=== PATIENT | male | born 2000 | race Caucasian/White ===

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

== ENCOUNTER 2019-04-30 02:12 | Emergency (ER) | payer BC ==
[2019-04-30 02:23] VITALS: RESP 18
--- NOTE | 2019-04-30 03:23 | XR ---
EXAM: XR Chest, 2 Views CLINICAL HISTORY: Pain TECHNIQUE: Frontal and lateral views of the chest. COMPARISON: No relevant prior studies available. FINDINGS: Lungs: Unremarkable. No consolidation. Pleural space: Unremarkable. No pneumothorax. Heart: Unremarkable. No cardiomegaly. Mediastinum: Unremarkable. Bones/joints: Unremarkable. IMPRESSION: Normal chest x-rays.
[2019-04-30] MEDS ORDERED: KETOROLAC 30 MG/ML 1 ML VIAL IVP STA (03:37)
--- NOTE | 2019-04-30 03:46 | ED ---
Chest Pain HPI - General Chief Complaint: Chest Pain Stated Complaint: Chest Pain Time Seen by Provider: 04/30/19 02:47 Source: patient, RN notes reviewed, old records reviewed, Caregiver Mode of arrival: ambulatory Limitations: no limitations - History of Present Illness Initial Comments: Is a 18-year-old male presents emergency department today with left-sided pleuritic chest pain. Symptoms started this afternoon around 1:30 PM. Patient states it seems worse with taking a deep breath. Denies any significant coughing. Denies any family history of blood disorders or history of blood clots or PE. Patient states that he has had no fevers or chills. Patient states that the pain seems to be somewhat deeper than just palpation over the ribs. He denies any significant past medical history. - Related Data Home Medications Medication Instructions Recorded Confirmed Dextroamphetamine/Amphetamine 10 mg PO BID 07/29/18 07/29/18 [Adderall] traZODone HCL 50 mg PO HS PRN 07/29/18 07/29/18 Previous Rx's Medication Instructions Recorded Ibuprofen [Motrin] 800 mg PO Q8H PRN 7 Days #21 tab 07/29/18 Albuterol Inhaler [Ventolin Hfa 1 - 2 puff INHALATION RT-Q6H PRN 04/30/19 Inhaler] #1 inhaler Ketorolac [Toradol] 10 mg PO Q6HR #10 tab 04/30/19 methylPREDNISolone Dose Pack 4 mg PO DIRECTED #21 package 04/30/19 [Medrol Dose Pack] Allergies Allergy/AdvReac Type Severity Reaction Status Date / Time No Known Allergies Allergy Verified 04/30/19 02:24 Review of Systems ROS Statement: Those systems with pertinent positive or pertinent negative responses have been documented in the HPI. ROS Other: All systems not noted in ROS Statement are negative. Past Medical History Past Medical History: No Reported History History of Any Multi-Drug Resistant Organisms: None Reported Past Surgical History: No Surgical Hx Reported Additional Past Surgical History / Comment(s): testicular surgery as a infant, Past Psychological History: No Psychological Hx Reported Smoking Status: Current some day smoker Past Alcohol Use History: None Reported Past Drug Use History: None Reported General Exam - General Exam Comments Initial Comments: His is a 18-year-old male. Alert and oriented. No distress. Limitations: no limitations General appearance: alert, in no apparent distress Head exam: Present: atraumatic, normocephalic, normal inspection Eye exam: Present: normal appearance, PERRL, EOMI. Absent: scleral icterus, conjunctival injection, periorbital swelling ENT exam: Present: normal exam, mucous membranes moist Neck exam: Present: normal inspection. Absent: tenderness, meningismus, lymphadenopathy Respiratory exam: Present: normal lung sounds bilaterally, other (Tender to palpation over the left ribs T9 10.). Absent: respiratory distress, wheezes, rales, rhonchi, stridor Cardiovascular Exam: Present: regular rate, normal rhythm, normal heart sounds. Absent: systolic murmur, diastolic murmur, rubs, gallop, clicks GI/Abdominal exam: Present: soft, normal bowel sounds. Absent: distended, tenderness, guarding, rebound, rigid Extremities exam: Present: normal inspection, full ROM, normal capillary refill. Absent: tenderness, pedal edema, joint swelling, calf tenderness Back exam: Present: normal inspection Neurological exam: Present: alert, oriented X3, CN II-XII intact Course Vital Signs 04/30/19 02:21 Temperature 99.2 F Pulse Rate 93 Respiratory 18 Rate Blood Pressure 133/75 O2 Sat by Pulse 98 Oximetry Chest Pain MDM - MDM 18-year-old members as returned today of pleuritic right chest pain. Symptoms started 1:30 PM yesterday. Chest x-rays reviewed to be normal. Blood work was reviewed and unremarkable. EKG shows no acute changes. Patient's chest pain since injury. Reproducible with palpation over the left-sided ribs. I discussed the normal dimer test as well as other labs no further testing needed at this time. Discussed he can follow up with his PCP. We'll discharge the Patient with a prescription for Toradol and Solu-Medrol and albuterol. Discussed that he needs to discontinue the pain. All questions were answered. Discussed appropriate follow-up with PCP. EKG performed at 231 shows normal sinus rhythm and normal EKG. Ventricular rate 73 bpm. Was 124 segs. Dressed duration 90 ms. QT QTc is 366/403 ms. Disposition Clinical Impression: Acute costochondritis, Pleurisy Disposition: HOME SELF-CARE Condition: Good Instructions (If sedation given, give patient instructions): Costochondritis (ED) Additional Instructions: Patient has a take medications as prescribed. Follow-up with your primary care physician. Return to the emergency department if any alarming signs or symptoms occur. Prescriptions: methylPREDNISolone Dose Pack [Medrol Dose Pack] 4 mg PO DIRECTED #21 package Ketorolac [Toradol] 10 mg PO Q6HR #10 tab Albuterol Inhaler [Ventolin Hfa Inhaler] 1 - 2 puff INHALATION RT-Q6H PRN #1 inhaler PRN Reason: Shortness Of Breath Is patient prescribed a controlled substance at d/c from ED?: No Referrals: Rhys Burkett DO [Primary Care Provider] - 1-2 days Time of Disposition: 05:34
[2019-04-30 04:22] LABS: Basophils # (A) 0.1 k/uL (0-0.2); Basophils % (A) 1 %; Eosinophils # (A) 0.1 k/uL (0-0.7); Eosinophils % (A) 2 %; HCT 44.2 % (39.0-53.0); HGB 14.6 gm/dL (13.0-17.5); Lymphocytes # (A) 2.8 k/uL (1.0-4.8); Lymphocytes % (A) 37 %; MCHC 33.1 g/dL (31.0-37.0); MCV 81.6 fL (80.0-100.0); Mean Platelet Volume 7.2; Monocytes # (A) 0.5 k/uL (0-1.0); Monocytes % (A) 7 %; Neutrophils # (A) 3.9 k/uL (1.3-7.7); Neutrophils % (A) 51 %; Platelet Count 183 k/uL (150-450); RBC 5.42 m/uL (4.30-5.90); RDW 12.4 % (11.5-15.5); WBC 7.6 k/uL (4.0-11.0)
[2019-04-30 04:39] LABS: ALT 20 U/L (21-72); AST 23 U/L (17-59); African American GFR (CKD) >90 (>60 ml/min/1.73 sqM); Albumin 4.7 g/dL (3.5-5.0); Alkaline Phosphatase 50 U/L (38-126); Anion Gap 10 mmol/L; Blood Urea Nitrogen 13 mg/dL (9-20); Calcium 9.8 mg/dL (8.4-10.2); Carbon Dioxide 28 mmol/L (22-30); Chloride 103 mmol/L (98-107); Glucose 93 mg/dL (74-99); Magnesium 1.9 mg/dL (1.6-2.3); Sodium 141 mmol/L (137-145); Total Bilirubin 0.4 mg/dL (0.2-1.3); Total Protein 7.5 g/dL (6.3-8.2)
[2019-04-30 04:45] LABS: D-Dimer <0.17 mg/L FEU (<0.60); Partial Thromboplastin Time 26.2 sec (22.0-30.0); Prothrombin Time 10.8 sec (9.0-12.0)
[2019-04-30 05:50] VITALS: BP 123/78; PULSE 88; TEMP 98.7
== END 2019-04-30 05:50 | disposition home or self-care (01) ==
LOC: EC 02:12
DX: M94.0 Chondrocostal junction syndrome [Tietze] (principal); R09.1 Pleurisy; F17.200 Nicotine dependence, unspecified, uncomplicated; Z79.899 Other long term (current) drug therapy
CPT/HCPCS: 36415; 85379; 80053; 83735; 84484; 85025; 85610; 85730; 71046; 99284; 96374; J1885

== ENCOUNTER 2019-05-05 02:00 | Emergency (ER) | payer BC ==
[2019-05-05 02:04] VITALS: RESP 16; TEMP 98.2
--- NOTE | 2019-05-05 04:21 | ED ---
General Adult HPI - General Source: patient, RN notes reviewed, old records reviewed Mode of arrival: ambulatory Limitations: no limitations <Justus Santana - Last Filed: 05/05/19 04:22> <Jose A Vizcaino - Last Filed: 05/05/19 04:51> - General Chief complaint: Chest Pain Stated complaint: Chest pain Time Seen by Provider: 05/05/19 02:07 - History of Present Illness Initial comments: 18-year-old male patient, no pertinent past medical history presents to ED for chief complaint of chest pain. Patient was that he has a waxing and waning chest pain is left parasternal region which radiates up to his neck. Patient with his ongoing for approximately one week. Patient denies any shortness of breath. Patient does report a nonproductive cough. Patient was evaluated for this problem approximately one week ago in this emergency department course at which time he had a negative workup including cardiac enzymes. Patient also reports that he was evaluated a second time at [facility], which she underwent a mother unremarkable workup including a CAT scan of the chest. Patient states his symptoms today are identical to what he has experienced a previous evaluations. Denies any other complaints. Systemic: Pt denies fatigue, fever/chills, rash. Pt denies weakness, night sweats, weight loss. Neuro: Pt denies headache, visual disturbances, syncope or pre-syncope. HEENT: Pt denies ocular discharge or irritation, otalgia, rhinorrhea, pharyngitis or notable lymphadenopathy. Cardiopulmonary: Pt denies SOB, heart palpitations, dyspnea on exertion. Abdominal/GI: Pt denies abdominal pain, n/v/d. : Pt denies dysuria, burning w/ urination, frequency/urgency. Denies new onset urinary or bowel incontinence. MSK: Pt denies myalgia, loss of strength or function in extremities. Neuro: Pt denies new onset weakness, paresthesias. (Justus Santana) - Related Data Home Medications Medication Instructions Recorded Confirmed Dextroamphetamine/Amphetamine 10 mg PO BID 07/29/18 07/29/18 [Adderall] traZODone HCL 50 mg PO HS PRN 07/29/18 07/29/18 Previous Rx's Medication Instructions Recorded Ibuprofen [Motrin] 800 mg PO Q8H PRN 7 Days #21 tab 07/29/18 Albuterol Inhaler [Ventolin Hfa 1 - 2 puff INHALATION RT-Q6H PRN 04/30/19 Inhaler] #1 inhaler Ketorolac [Toradol] 10 mg PO Q6HR #10 tab 04/30/19 methylPREDNISolone Dose Pack 4 mg PO DIRECTED #21 package 04/30/19 [Medrol Dose Pack] Allergies Allergy/AdvReac Type Severity Reaction Status Date / Time No Known Allergies Allergy Verified 04/30/19 02:24 Review of Systems ROS Other: All systems not noted in ROS Statement are negative. <Justus Santana - Last Filed: 05/05/19 04:22> ROS Other: All systems not noted in ROS Statement are negative. <Jose A Vizcaino - Last Filed: 05/05/19 04:51> ROS Statement: Those systems with pertinent positive or pertinent negative responses have been documented in the HPI. Past Medical History Past Medical History: No Reported History History of Any Multi-Drug Resistant Organisms: None Reported Past Surgical History: No Surgical Hx Reported Additional Past Surgical History / Comment(s): testicular surgery as a , Past Psychological History: No Psychological Hx Reported Smoking Status: Current some day smoker Past Alcohol Use History: None Reported Past Drug Use History: None Reported <Justus Santana - Last Filed: 05/05/19 04:22> General Exam Limitations: no limitations <Justus Santana - Last Filed: 05/05/19 04:22> - General Exam Comments Initial Comments: Constitutional: NAD, AOX3, Pt has pleasant affect. HEENT: NC/AT, trachea midline, neck supple, no lymphadenopathy. Posterior pharynx non erythematous, without exudates. External ears appear normal, without discharge. Mucous membranes moist. Eyes PERRLA, EOM intact. There is no scleral icterus. No pallor noted. Cardiopulmonary: RRR, no murmurs, rubs or gallops, no JVD noted. Lungs CTAB in anterior and posterior gonzalez. No peripheral edema. Abdominal exam: Abdomen soft and non-distended. Abdomen non-tender to palpation in all 4 quadrants. Bowel sounds active in LLQ. No hepatosplenomegaly. No ecchymosis Neuro: CN II-XII grossly intact. No nuchal rigidity. No raccon eyes, no stephens sign, no hemotympanum. No cervical spinal tenderness. MSK: No posterior calf tenderness bilaterally, homans sign negative bilaterally. Posterior tibialis and radial pulse +2 bilaterally. Sensation intact in upper and lower extremities. Full active ROM in upper and lower extremities, 5/5 stregnth. (Justus Santana) Course Vital Signs 05/05/19 02:01 Temperature 98.2 F Pulse Rate 92 Respiratory 16 Rate Blood Pressure 148/99 O2 Sat by Pulse 100 Oximetry Medical Decision Making - EKG Data -: EKG Interpreted by Me <Justus Santana - Last Filed: 05/05/19 04:22> <Jose A Vizcaino - Last Filed: 05/05/19 04:51> - Medical Decision Making I saw this patient in conjunction with the physician clinic office assistant. I performed independent history and physical exam. Agree with case management. I did perform a bedside ultrasound to rule out pericardial effusion. (Jose A Canchola) - EKG Data EKG Comments: Ventricular rate 81, painful and 24, QRS 86, QT/QTC 348/44. Normal since rhythm, normal EKG, no concerns for acute ischemia. (Justus Santana) Disposition Is patient prescribed a controlled substance at d/c from ED?: No <Justus Santana - Last Filed: 05/05/19 04:22> Is patient prescribed a controlled substance at d/c from ED?: No <Jose A Vizcaino - Last Filed: 05/05/19 04:51> Clinical Impression: Chest pain, atypical Disposition: HOME SELF-CARE Condition: Stable Instructions (If sedation given, give patient instructions): Chest Pain (ED) Referrals: Rhys Burkett DO [Primary Care Provider] - 1-2 days
--- NOTE | 2019-05-05 04:24 | XR ---
EXAM: XR Chest, 2 Views CLINICAL HISTORY: cough TECHNIQUE: Frontal and lateral views of the chest. COMPARISON: 04/30/2019 FINDINGS: Lungs: Unremarkable. No consolidation. Pleural space: Unremarkable. No pneumothorax. Heart: Unremarkable. No cardiomegaly. Mediastinum: Unremarkable. Bones/joints: No acute osseous abnormality. IMPRESSION: No acute cardiopulmonary process.
[2019-05-05 05:06] VITALS: BP 130/68; PULSE 78
== END 2019-05-05 05:06 | disposition home or self-care (01) ==
LOC: EC 02:00
DX: R07.89 Other chest pain (principal); R05 Cough; F17.200 Nicotine dependence, unspecified, uncomplicated; Z98.890 Other specified postprocedural states; Z79.899 Other long term (current) drug therapy
CPT/HCPCS: 71046; 99285